=== PATIENT | male | born 1950 | race Caucasian/White ===

== ENCOUNTER 2017-01-05 18:06 | Inpatient (IN) ==
[2017-01-05 19:08] LABS: Basophils % 0.3 %; Eosinophils % 0.3 %; Hematocrit 40.3 % (37.5-50.1); Hemoglobin 13.5 g/dL (12.9-16.9); Immature Granulocytes % 0.4 % (0-4); Lymphocytes % 7.4 %; Mean Corpuscular HGB Conc 33.5 g/dL (31.6-35.5); Mean Corpuscular Hemoglobin 27.6 pg (28.0-33.3); Mean Corpuscular Volume 82.2 fL (83.0-100.0); Mean Platelet Volume 9.7 fL (9.4-12.4); Monocytes # 1.1 K/mcL (0.0-1.3); Monocytes % 7.7 %; Neutrophils # 11.6 K/mcL (1.6-8.9); Platelet Count 191 K/mcL (140-400); Red Cell Distribution Width 13.9 % (11.5-14.5); Segmented Neutrophils % 83.9 %
[2017-01-05 19:19] LABS: BUN/Creatinine Ratio 13 (6-26); Blood Urea Nitrogen 14 mg/dL (8-26); Calcium 8.9 mg/dL (8.6-10.8); Carbon Dioxide 22 mEq/L (19-29); Chloride 103 mEq/L (98-109); Glucose 157 mg/dL (70-99); Osmolality,Calculated 278 (280-300); Potassium 3.9 mEq/L (3.5-4.5); Sodium 132 mEq/L (136-145); eGFR For African Americans > 60 (> 60); eGFR For Non-African Americans > 60 (> 60)
[2017-01-05] MEDS ORDERED: Piperacillin/Tazobactam 3.375 GM in D5% in Water (Mini-Bag+) 100 ML IVPB ONE (21:09)
[2017-01-05] MEDS ORDERED: Vancomycin (wt based) 1,000 MG VIAL IV ONE (21:10)
[2017-01-05] MEDS ORDERED: 0.9 % Sodium Chloride 1,000 ML IVC ONE (21:30)
[2017-01-05] MEDS ORDERED: Vancomycin 1,500 MG in D5% in Water 250 ML IVPB ONE (22:00)
--- NOTE | 2017-01-05 22:09 | Emergency Department Note ---
Disposition Clinical Impression: Perineal abscess, Scrotal swelling Disposition: Admitted As Inpatient Condition: Good Referrals: Roshan,Denice Winchester CNP [Primary Care Provider] - Time of Disposition: 22:12 Skin/Abscess/FB HPI Chief complaint: ED Skin/Abscess/Foreign Body Stated complaint: abscess Time Seen by Provider: 01/05/17 18:29 Source: patient Limitations: no limitations Nursing Notes Reviewed: Yes Vital Signs Reviewed: Yes HPI Narrative: 66-year-old male presents emergency room for swelling to his scrotal area. States he noticed some swelling started in the area between his scrotum and rectum on Saturday. He saw his doctor yesterday. They placed him on Bactrim for concerns for developing abscess. He developed high fevers today to 103 associated with diaphoresis. He states he did not feel well earlier today. He comes into the ER for evaluation. He states he is not having a lot of pain in this area but has noted some redness and increased swelling extending up into the scrotum. He denies any problems with bowel movements. No pain with defecation. No problems with urination. He denies any abdominal pain. No chest pain or shortness of breath. Denies any trauma. Previous Rx's Medication Instructions Recorded predniSONE [Prednisone] 20 mg PO DAILY #18 tablet 06/19/15 Allergies Allergy/AdvReac Type Severity Reaction Status Date / Time No Known Allergies Allergy Unverified 06/15/15 09:50 Review of Systems: Gen.: No fevers or chills or new weakness Eyes: Denies double vision or any vision changes Ears: Denies any otalgia Pharynx: Denies sore throat CV: Denies chest pain. Denies palpitations Respiratory: Denies any cough or sputum production. No shortness of breath. GI: Denies any nausea, vomiting, diarrhea, constipation. Denies abdominal pain Neuro: Denies any headache. No problems with ambulation. No numbness. Skin: Denies any rashes or abrasions Psych: Denies any depression or suicidal or homicidal ideation Musculoskeletal: Denies any arthralgias or myalgias Past Medical History - Past Medical History Medical history: Reports: cancer, hypertension, other Psychiatric history: Reports: no psych history - Social History Smoking Status: Former smoker Smokeless Tobacco Status: No Alcohol use: Reports: none Drug use: Reports: none Physical Exam - General Limitations: no limitations General appearance: alert, in no apparent distress - Head Head exam: atraumatic, normocephalic - Eye Eye exam: Present: normal appearance - Neck Neck exam: Present: normal inspection - Chest Chest inspection: Present: normal inspection, symmetric chest wall rise - Respiratory Respiratory exam: Present: normal lung sounds bilaterally - Cardiovascular Cardiovascular exam: Present: regular rate, normal rhythm - Abdominal Exam Abdominal exam: Present: soft, Non-Tender, normal bowel sounds. Absent: tenderness, distention - Male exam: Present: other (There is extensive swelling and induration extending along the posterior aspect of the scrotum extending back towards the rectum. There is a cordlike or bandlike area of induration in this region. There is skin redness throughout this entire region. There is a little bit of swelling and redness that has extended up the scrotal region. Normal testicular exam.) - Extremities Exam Extremities exam: Present: normal inspection - Neurological Exam Neurological exam: Present: alert, oriented X3 - Psychiatric Psychiatric exam: Present: normal affect, normal mood - Skin Skin exam: Present: warm, dry, intact Course Vital Signs Temperature 101.6 F H 01/05/17 18:19 Pulse Rate 109 01/05/17 18:19 Respiratory Rate 16 01/05/17 18:19 Blood Pressure 177/71 01/05/17 18:19 O2 Sat by Pulse Oximetry 95 01/05/17 18:19 Temperature 99 F 01/05/17 21:53 Pulse Rate 92 01/05/17 21:55 Respiratory Rate 16 01/05/17 21:55 Blood Pressure 137/57 01/05/17 21:55 O2 Sat by Pulse Oximetry 97 01/05/17 21:55 Oxygen Delivery Oxygen Delivery Room Air Skin/Abscess/Foreign Body - MDM Narrative Medical decision making narrative: I consulted with urology, Dr. Burgess. I also consulted with Dr. Dale with general surgery. He will come in and see the patient in the ER. He would also like us to obtain a ultrasound of this region. I did a CT scan which showed an area of 3 cm possible abscess with extensive soft tissue induration and swelling noted. I am awaiting the environmental laboratory technician to come to the ER to do the study. In the meantime I have ordered vancomycin and Zosyn. It does not appear to be a Gail's presentation at this time. There is no gas noted on the CT scan. He does have an elevated white count and he had a fever here. I did treat his fever with Tylenol and which I gave him 1 g of oral Tylenol. He is receiving IV fluids. His lactate was normal. Remaining lab work was unremarkable. - Medical Records Medical records reviewed: Yes I reviewed the patient's medical records. - Lab Data Lab results reviewed: Yes I reviewed the patient's lab results. Result diagrams: 01/05/17 19:00 01/05/17 19:00 Lab Results 01/05/17 01/05/17 01/05/17 Range/Units 19:00 19:00 19:00 WBC 13.8 H (4.3-11.1) K/mcL RBC 4.90 (4.19-5.50) M/mcL Hgb 13.5 (12.9-16.9) g/dL Hct 40.3 (37.5-50.1) % MCV 82.2 L (83.0-100.0) fL MCH 27.6 L (28.0-33.3) pg MCHC 33.5 (31.6-35.5) g/dL RDW 13.9 (11.5-14.5) % Plt Count 191 (140-400) K/mcL MPV 9.7 (9.4-12.4) fL Immature Gran % 0.4 (0-4) % Seg Neutrophils % 83.9 % Lymphocytes % 7.4 % Monocytes % 7.7 % Eosinophils % 0.3 % Basophils % 0.3 % Neutrophils # 11.6 H (1.6-8.9) K/mcL Lymphocytes # 1.0 (0.6-4.6) K/mcL Monocytes # 1.1 (0.0-1.3) K/mcL Eosinophils # 0.0 (0.0-0.6) K/mcL Basophils # 0.0 (0.0-0.2) K/mcL Sodium 132 L (136-145) mEq/L Potassium 3.9 (3.5-4.5) mEq/L Chloride 103 (98-109) mEq/L Carbon Dioxide 22 (19-29) mEq/L BUN 14 (8-26) mg/dL Creatinine 1.09 (0.72-1.25) mg/dL Est GFR ( Amer) > 60 (> 60) Est GFR (Non-Af Amer) > 60 (> 60) BUN/Creatinine Ratio 13 (6-26) Glucose 157 H (70-99) mg/dL Calculated Osmolality 278 L (280-300) Lactic Acid 1.5 (0.5-2.2) mmol/L Calcium 8.9 (8.6-10.8) mg/dL - Radiology Data Radiology results reviewed: Yes I reviewed the patient's radiology results.
--- NOTE | 2017-01-05 22:59 | General Surgery Consult Note ---
Date of Encounter: 01/05/17 Time of Encounter: 22:55 Assessment and Plan (1) Perineal abscess Current Visit: Yes Status: Acute 66M with small scrotal abscess with associated cellulitis; non septic - abx: vanc, zosyn - IVF - urology consult: likely will need drainage; appreciate their recommendations - pain control - no surgery from general surgery needed at present, but available should that change or for consult by urology (2) Scrotal swelling Current Visit: Yes Status: Acute see above History of Present Illness Reason for consult: other (evaluation for abscess) History of present illness: 66M with PMH significant for HTN who presents after 2 days of worsening pain along his perineum notice primarily when he attempts to sit down. The pain has gotten progressively worse. In addition he has noticed purulent drainage in his clothes and bedding. He was seen by his PCP who placed him on bactrim, but his symptoms persisted. He then came to the ED for evaluation. A CT scan was obtained which I personally reviewed and interpreted. Surgery was consulted for management recommendations. Past Med Surg Social Fam HX - Past Medical History Medical history: cancer, hypertension, other Psychiatric history: no psych history - Past Surgical History Surgical History: no surgical history - Social History Smoking Status: Former smoker Smokeless Tobacco Status: No Alcohol use: none Drug use: none - Additional Family History Additional family history: non contributory Medications and Allergies predniSONE [Prednisone] 20 mg PO DAILY #18 tablet 06/19/15 [Rx] 3 Allergy/AdvReac Type Severity Reaction Status Date / Time No Known Allergies Allergy Unverified 06/15/15 09:50 Review of Systems All systems PM: A 10-system review of systems was performed and is negative for pertinent findings except as documented above in the HPI. General Surgery Exam Initial Vital Signs Temp Pulse Resp BP Pulse Ox 101.6 F H 109 16 177/71 95 01/05/17 18:19 01/05/17 18:19 01/05/17 18:19 01/05/17 18:19 01/05/17 18:19 - General physical appearance well developed, well nourished, no distress - Eyes other (no scleral icterus) - ENT normocephalic - Neck no lymphadectomy - Respiratory normal expansion, normal respiratory effort, clear to auscultation - Cardiovascular Cardiovascular exam: Present: RRR - Abdomen Abdomen general surgery: Present: soft, non tender - Genitourinary Present: normal penis with no external lesions, testicles present, testicles non -tender, other (small abscess at base of scrotum; (+)erythema; TTP; small area of fluctuance) - Rectum Rectum: Present: normal sphincter tone, no hemorrhoids, no tenderness, no masses , no bleeding - Neurologic Present: CN 2-12 grossly intact - Musculoskeletal Present: other (FROM in UE/LE B/L) - Psychiatric Psychiatric general surgery: Present: A&Ox3 Exam Initial Vital Signs Temp Pulse Resp BP Pulse Ox 101.6 F H 109 16 177/71 95 01/05/17 18:19 01/05/17 18:19 01/05/17 18:19 01/05/17 18:19 01/05/17 18:19 Results - Labs 01/05/17 19:00 01/05/17 19:00 Abnormal lab results WBC 13.8 K/mcL (4.3-11.1) H 01/05/17 19:00 MCV 82.2 fL (83.0-100.0) L 01/05/17 19:00 MCH 27.6 pg (28.0-33.3) L 01/05/17 19:00 Neutrophils # 11.6 K/mcL (1.6-8.9) H 01/05/17 19:00 Sodium 132 mEq/L (136-145) L 01/05/17 19:00 Glucose 157 mg/dL (70-99) H 01/05/17 19:00 Calculated Osmolality 278 (280-300) L 01/05/17 19:00 Diabetes panel 01/05/17 Range/Units 19:00 Sodium 132 L (136-145) mEq/L Potassium 3.9 (3.5-4.5) mEq/L Chloride 103 (98-109) mEq/L Carbon Dioxide 22 (19-29) mEq/L BUN 14 (8-26) mg/dL Creatinine 1.09 (0.72-1.25) mg/dL Glucose 157 H (70-99) mg/dL Calcium 8.9 (8.6-10.8) mg/dL Calcium panel 01/05/17 Range/Units 19:00 Calcium 8.9 (8.6-10.8) mg/dL Pituitary panel 01/05/17 Range/Units 19:00 Sodium 132 L (136-145) mEq/L Potassium 3.9 (3.5-4.5) mEq/L Chloride 103 (98-109) mEq/L Carbon Dioxide 22 (19-29) mEq/L BUN 14 (8-26) mg/dL Creatinine 1.09 (0.72-1.25) mg/dL Glucose 157 H (70-99) mg/dL Calcium 8.9 (8.6-10.8) mg/dL Adrenal panel 01/05/17 Range/Units 19:00 Sodium 132 L (136-145) mEq/L Potassium 3.9 (3.5-4.5) mEq/L Chloride 103 (98-109) mEq/L Carbon Dioxide 22 (19-29) mEq/L BUN 14 (8-26) mg/dL Creatinine 1.09 (0.72-1.25) mg/dL Glucose 157 H (70-99) mg/dL Calcium 8.9 (8.6-10.8) mg/dL All other labs normal. - Imaging CT scan - abdomen: report reviewed, image reviewed CT scan - pelvis: report reviewed, image reviewed Additional studies: US of perineum pending Consult Discharge Plan - Plan Referrals: Denice Islas, MUMTAZ [Primary Care Provider] -
--- NOTE | 2017-01-05 23:31 | Emergency Department Note ---
Disposition Clinical Impression: Perineal abscess, Scrotal swelling Disposition: Admitted As Inpatient Condition: Good General Adult HPI - General Chief complaint: ED Skin/Abscess/Foreign Body Stated complaint: abscess Time Seen by Provider: 01/05/17 18:29 Source: patient Limitations: no limitations - History of Present Illness Pain Scale: 0 - Related Data Previous Rx's Medication Instructions Recorded predniSONE [Prednisone] 20 mg PO DAILY #18 tablet 06/19/15 Allergies Allergy/AdvReac Type Severity Reaction Status Date / Time No Known Allergies Allergy Unverified 06/15/15 09:50 Past Medical History - Past Medical History Medical history: Reports: cancer, hypertension, other Surgical history: Reports: no surgical history Psychiatric history: Reports: no psych history - Social History Smoking Status: Former smoker Smokeless Tobacco Status: No Alcohol use: Reports: none Drug use: Reports: none Physical Exam - General Limitations: no limitations General appearance: alert, in no apparent distress Course Course Narrative: Patient signed out by patient came pending final disposition by surgery. Please see their documentation for history of present illness. The patient was evaluated by general surgery at bedside here after the patient came spoke with urology. General surgery recommends no intervention from their perspective at this time and for urologic evaluation given the area of involvement. Patient will be admitted to the hospitalist service with urologic consultation. Vital Signs Temperature 101.6 F H 01/05/17 18:19 Pulse Rate 109 01/05/17 18:19 Respiratory Rate 16 01/05/17 18:19 Blood Pressure 177/71 01/05/17 18:19 O2 Sat by Pulse Oximetry 95 01/05/17 18:19 Temperature 99 F 01/05/17 21:53 Pulse Rate 92 01/05/17 21:55 Respiratory Rate 16 01/05/17 21:55 Blood Pressure 137/57 01/05/17 21:55 O2 Sat by Pulse Oximetry 97 01/05/17 21:55 Oxygen Delivery Oxygen Delivery Room Air Medical Decision Making - [facility] Narrative Medical decision making narrative: 66-year-old male with scrotal abscess. Febrile here with a slight white count. Prior team spoke with urology and surgery. Urology was agreeable to see the patient in consultation in the morning as per the prior teams sign out. Surgery saw the patient in the ER. Patient given vancomycin and Zosyn. Admitted to the hospitalist service. - Lab Data Lab results reviewed: Yes I reviewed the patient's lab results. Result diagrams: 01/05/17 19:00 01/05/17 19:00 Lab Results 01/05/17 01/05/17 01/05/17 Range/Units 19:00 19:00 19:00 WBC 13.8 H (4.3-11.1) K/mcL RBC 4.90 (4.19-5.50) M/mcL Hgb 13.5 (12.9-16.9) g/dL Hct 40.3 (37.5-50.1) % MCV 82.2 L (83.0-100.0) fL MCH 27.6 L (28.0-33.3) pg MCHC 33.5 (31.6-35.5) g/dL RDW 13.9 (11.5-14.5) % Plt Count 191 (140-400) K/mcL MPV 9.7 (9.4-12.4) fL Immature Gran % 0.4 (0-4) % Seg Neutrophils % 83.9 % Lymphocytes % 7.4 % Monocytes % 7.7 % Eosinophils % 0.3 % Basophils % 0.3 % Neutrophils # 11.6 H (1.6-8.9) K/mcL Lymphocytes # 1.0 (0.6-4.6) K/mcL Monocytes # 1.1 (0.0-1.3) K/mcL Eosinophils # 0.0 (0.0-0.6) K/mcL Basophils # 0.0 (0.0-0.2) K/mcL Sodium 132 L (136-145) mEq/L Potassium 3.9 (3.5-4.5) mEq/L Chloride 103 (98-109) mEq/L Carbon Dioxide 22 (19-29) mEq/L BUN 14 (8-26) mg/dL Creatinine 1.09 (0.72-1.25) mg/dL Est GFR ( Amer) > 60 (> 60) Est GFR (Non-Af Amer) > 60 (> 60) BUN/Creatinine Ratio 13 (6-26) Glucose 157 H (70-99) mg/dL Calculated Osmolality 278 L (280-300) Lactic Acid 1.5 (0.5-2.2) mmol/L Calcium 8.9 (8.6-10.8) mg/dL - Radiology Data Radiology results reviewed: Yes I reviewed the patient's radiology results. Abdomen/Pelvis CT 01/05/17 18:48 IMPRESSION: 3 cm ellipse shaped hypodense area with thin rim in the posterior perineal region suggestive of an abscess with diffuse surrounding soft tissue swelling and edema. Stable chronic findings as described. RECOMMENDATIONS: Consider further evaluation with localized ultrasound as clinically warranted. D/ / Nu Valencia MD / Nu Valencia MD Interpreting Provider: Nu Valencia MD Scrotum Ultrasound 01/05/17 21:28 IMPRESSION: 1. Heterogeneous soft tissue along the posterior margin of the scrotum with surrounding hypervascularity suggestive of a phlegmon. 2. Scrotal skin thickening. D/ / Brian Alfred MD / Brian Alfred MD Interpreting Provider: Brian Alfred MD S.B.A.RKaila - S.B.A.RKaila Situation: Demographics, MOA Background: Presenting Complaint, Relevant PMH, Meds, & Allergies Assessment: Course and respsone to treatment, Exam Concerns, Patient/Family Expectation, Pertinant Lab Results, Outstanding Labs Recommendation: Barrier(s) to disposition, Recommendation based on pending studies, treatments, or consults S.B.A.RKaila Report Given to: Dr. Jeannette Ray Repor Time: 23:52 Attestation Statement - Attestation Attestation: I examined this patient and my medical decision-making was reviewed with the Resident Physician. I agree with the documented findings, disposition and treatment plan as described except to the extent set forth below. Patient signed out pending surgery consult. They will fill the abscess is located close to the scrotum and would be more appropriate to be I&D by urology. Admitted to medicine with consult.
[2017-01-06] MEDS ORDERED: *HR* Morphine 2 MG/ML SYRINGE IVP PRN ×2 (00:28→12:47)
[2017-01-06] MEDS ORDERED: Acetaminophen 325 MG TABLET PO PRN ×2 (00:28→12:47)
[2017-01-06] MEDS ORDERED: Ondansetron 4 MG/2 ML VIAL IVP PRN ×2 (00:28→12:47)
[2017-01-06] MEDS ORDERED: Naloxone 0.4 MG/ML INJ IVP PRN ×2 (00:28→12:47)
[2017-01-06] MEDS ORDERED: *HR* OxyCODONE Immed Rel 5 MG TABLET PO PRN ×2 (00:28→12:47)
[2017-01-06] MEDS ORDERED: 0.9 % Sodium Chloride w KCl 20 MEQ/1,000 ML MLS IVC SCH (00:30)
--- NOTE | 2017-01-06 00:39 | Internal Med History&Physical ---
Date of Encounter: 01/06/17 Time of Encounter: 00:10 Assessment and Plan (1) Scrotal abscess Current visit: Yes Status: Acute 1. Urology and Surgery both consulted by ER. 2. Will order blood cultures and U/A and urine culture. 3. Will continue IV Vancomycin and Zosyn as ordered in ER. 4. I will also add Flagyl for better anaerobic coverage. 5. If patient undergoes I&D by urology or surgery, I would request culture and gram stain be obtained. (2) Hypertension Current visit: Yes Status: Chronic 1. Will continue home meds as appropriate. 2. Monitor BP and adjust as needed. Qualifiers: Hypertension type: essential hypertension Qualified Code(s): I10 - Essential (primary) hypertension (3) DVT prophylaxis Current visit: Yes Status: Acute 1. Heparin SQ. Internal Medicine - H&P: HPI Chief complaint: painful/swollen scortum Admitted From: Emergency Dept Plans for Post Hospital Care: Home History of present illness: Mr. Lorenz is a 66 year old male who presents to the ER tonight with complaints of painful and swollen scrotum. He first noted it about 5 days ago and was placed on antibiotics 2 days ago by his PCP. Despite the antibiotics, his tenderness, swelling, and pain progressed. He then developed fevers today. He came to the ER for evaluation. Workup included CT of the pelvis and ultrasound of the scrotum. There was concern for scrotal abscess versus phlegmon. Urology and surgery were both consulted by the ER. General surgery does not feel surgery is indicated at this time and defers scrotal issues to urology. Urology will see the patient in the morning. He was subsequently admitted to the hospitalist service. Upon my assessment of the patient, I saw him in the ER with his and daughter present. He is feeling a little better now. He denies having significant pain at the present time. He denies any painful defecation, dysuria , urinary frequency, hematuria, or flank pain. He has never had this before. He denies any trauma or injury to the scrotum. He denies any prior history of prostate problems or prostatitis. Home meds include [id number] with ): Lisinopril 40 mg daily Metoprolol 25 mg BID Past Med Surg Social Fam HX - Past Medical History Attestation: Yes The following information was validated with the patient. Source: patient, old records reviewed Medical history: cancer (colon cancer 13 years ago), hypertension Psychiatric history: no psych history - Past Surgical History Surgical History: cancer surgery (partial colectomy), knee replacement - Social History Smoking Status: Former smoker Smokeless Tobacco Status: No Alcohol use: none Drug use: none Current living situation: Home, With Family Activity Level: Independent ambulation Recent Out of Country Travel Within the Last 8 Weeks: No - Family History Mother Living Status: Hx Family Genitourinary Disorders: No Hx Family Neurologic Disorders: Yes Father Living Status: Hx Family Cancer: No Hx Family Genitourinary Disorders: No Hx Family Neurologic Disorders: Yes Internal Medicine - H&P: Meds 3 Allergy/AdvReac Type Severity Reaction Status Date / Time No Known Allergies Allergy Unverified 06/15/15 09:50 - Constitutional Constitutional: fever(s), no chills, no night sweats - EENT Eyes: no blurry vision, no change in vision Ears: no ear pain, no tinnitus Nose, mouth and throat: no nasal congestion, no sinus pressure, no sore throat - Cardiovascular Cardiovascular ROS IM: no chest pain, no dyspnea - Respiratory Respiratory: no cough, no hemoptysis, no chest congestion - Gastrointestinal Gastrointestinal: no abdominal pain, no diarrhea, no hematemesis, no hematochezia, no melena, no nausea, no vomiting - Genitourinary Genitourinary ROS male: scrotal swelling, no dysuria, no flank pain, no hematuria, no penile discharge - Musculoskeletal Musculoskeletal ROS IM: no arthralgias, no back pain - Integumentary Integumentary IM: no rash, no jaundice - Neurological Neurological ROS: no dizziness, no focal weakness, no frequent falls, no headache(s) - Psychiatric Psychiatric: no anxiety, no depression - Endocrine Endocrine IM: no polydipsia, no polyuria - Hematologic/Lymphatic Hematologic/Lymphatic: no easy bruising, no lymphadenopathy - Allergic/Immunologic Allergic/Immunologic: no GI upset with certain foods - Constitutional Vitals: Temp Pulse Resp BP Pulse Ox 99 F 92 12 129/71 97 01/06/17 00:30 01/05/17 21:55 01/06/17 00:30 01/06/17 00:30 01/05/17 21:55 General appearance: Present: cooperative, A&O X 3, pleasant, no acute distress - Head Head exam: Present: atraumatic, normal inspection - Eye Eye exam: Present: EOMI, PERRL. Absent: scleral icterus Pupils: Present: normal accommodation - ENT ENT exam: Present: mucous membranes moist, normal exam - Neck Neck exam general surgery: Present: full ROM, supple. Absent: tenderness - Respiratory Respiratory exam: Present: CTAB. Absent: rales, rhonchi, wheezes - Cardiovascular Cardiovascular exam: Present: RRR, +S1, +S2. Absent: diastolic murmur, systolic murmur - GI/Abdominal GI/Abdominal exam: Present: normal bowel sounds, soft. Absent: hepatomegaly, mass, splenomegaly, tenderness - exam: Present: scrotal swelling Additional comments: Red, tender scrotum -- mostly on the posterior aspect towards rectum. Firm, nodular abscess/phelgmon on posterior aspect of scrotum. - Extremities Exam Extremities exam: Present: full ROM, warm. Absent: joint swelling, pedal edema - Back Exam Back exam: Absent: CVA tenderness (L), CVA tenderness (R) - Neurological Exam Neurological exam: Present: alert, CN II-XII intact, oriented X3, no focal deficits - Psychiatric Psychiatric exam: Present: normal affect, normal mood - Skin Skin exam: Present: dry, warm Internal Med - H&P Results - Labs CBC & Chem 7: 01/05/17 19:00 01/05/17 19:00 Labs: CT Abdomen/Pelvis and Scrotal U/S Reports reviewed
[2017-01-06] MEDS ORDERED: Vancomycin 1,500 MG in D5% in Water 250 ML IVPB SCH (01:00)
[2017-01-06 01:30] LABS: Basophils % 0.2 %; Eosinophils # 0.1 K/mcL (0.0-0.6); Eosinophils % 0.5 %; Hemoglobin 13.5 g/dL (12.9-16.9); Immature Granulocytes % 0.5 % (0-4); Immature Platelets 2.9 % (1.1-6.1); Lymphocytes # 1.8 K/mcL (0.6-4.6); Lymphocytes % 11.3 %; Mean Corpuscular HGB Conc 32.9 g/dL (31.6-35.5); Mean Corpuscular Hemoglobin 26.9 pg (28.0-33.3); Mean Corpuscular Volume 81.7 fL (83.0-100.0); Mean Platelet Volume 9.7 fL (9.4-12.4); Monocytes # 1.6 K/mcL (0.0-1.3); Neutrophils # 12.5 K/mcL (1.6-8.9); Platelet Count 208 K/mcL (140-400); Red Blood Count 5.02 M/mcL (4.19-5.50); Red Cell Distribution Width 13.8 % (11.5-14.5); Segmented Neutrophils % 77.5 %
[2017-01-06 01:34] LABS: INR 1.2; Prothrombin Time 13.2 Seconds (9.4-12.1)
[2017-01-06 01:36] LABS: Activated Partial Thrombo Time 27.2 Seconds (26.0-36.0)
[2017-01-06 01:43] LABS: Alanine Aminotransferase 14 Units/L (0-55); Albumin 2.9 g/dL (3.5-5.0); Albumin/Globulin Ratio 0.7 (1.1-2.2); Alkaline Phosphatase 72 Units/L (38-126); Aspartate Amino Transferase 16 Units/L (5-34); BUN/Creatinine Ratio 13 (6-26); Bilirubin,Total 1.6 mg/dL (0.2-1.2); Blood Urea Nitrogen 13 mg/dL (8-26); Calcium 8.6 mg/dL (8.6-10.8); Carbon Dioxide 19 mEq/L (19-29); Chloride 106 mEq/L (98-109); Globulin 3.9 g/dL (2.4-3.5); Glucose 120 mg/dL (70-99); Magnesium 1.6 mg/dL (1.6-2.6); Osmolality,Calculated 281 (280-300); Potassium 3.8 mEq/L (3.5-4.5); Sodium 135 mEq/L (136-145); Total Protein 6.8 g/dL (6.0-8.3); eGFR For African Americans > 60 (> 60); eGFR For Non-African Americans > 60 (> 60)
[2017-01-06 05:52] LABS: Bilirubin,Urine Negative (Negative); Blood,Urine Negative (Negative); Clarity,Urine Clear (Clear); Color,Urine Yellow (Yellow); Glucose,Urine (UA) Normal (Normal); Ketones,Urine Negative (Negative); Leukocyte Esterase,Urine Negative (Negative); Nitrite,Urine Negative (Negative); Protein,Urine Trace mg/dL (Neg-Trace); Specific Gravity,Urine 1.028 (1.010-1.025)
[2017-01-06 05:55] LABS: Bacteria,Urine None Seen per hpf (None-Few); Hyaline Casts,Urine None Seen per lpf (None-Few); RBC,Urine 0-3 per hpf (0-3); Squamous Epithelial Cell,Urine Moderate per lpf (None-Few)
[2017-01-06] MEDS ORDERED: *HR* Heparin 5,000 UNIT/ML VIAL SQ SCH (06:00)
[2017-01-06] MEDS ORDERED: MetroNIDAZOLE 500 MG/100 ML 500 MG/100 ML BAG IVPB SCH (08:00)
[2017-01-06] MEDS ORDERED: Piperacillin/Tazobactam 3.375 GM in D5% in Water (Mini-Bag+) 100 ML IVPB SCH (08:00)
--- NOTE | 2017-01-06 08:03 | Urology - Consult Note ---
Date of Encounter: 01/06/17 Time of Encounter: 08:00 - Assessment and Plan (1) Perineal abscess Current Visit: Yes Status: Acute Assessment and plan: patient examined together with general surgery. Agree that this is more perineal involvement as compared to scrotal involvement. no urological intervention needed. (2) Scrotal abscess Current Visit: Yes Status: Acute Assessment and plan: not a scrotal abscess just edema and reaction to perineal abscess. Urology CN:HPI Consult date: 01/06/17 Reason for consult Urology: Other (perineal abscess) Requesting physician: Esteban Zaragoza History of present illness: Dylan is a 66 y/o male with history of perineal induration since this past saturday. Patient was started on oral abx, but patient states that this failed to improve his symptoms. Came to ED last night where CT was done which showed perineal abscess with some scrotal thickening. no fevers. + elevated WBC. Past Med Surg Social Fam HX - Past Medical History Medical history: cancer, hypertension Psychiatric history: no psych history - Past Surgical History Surgical History: cancer surgery, colectomy, herniorrhaphy, knee replacement - Social History Smoking Status: Former smoker Smokeless Tobacco Status: No Alcohol use: none Drug use: none - Family History Mother Living Status: Hx Family Genitourinary Disorders: No Hx Family Neurologic Disorders: Yes Father Living Status: Hx Family Cancer: No Hx Family Genitourinary Disorders: No Hx Family Neurologic Disorders: Yes Medications and Allergies Aspirin [Aspirin] 81 mg PO DAILY 01/06/17 [History] Lisinopril [Zestril] 40 mg PO DAILY 01/06/17 [History] Metoprolol [Lopressor] 50 mg PO DAILY 01/06/17 [History] 3 Allergy/AdvReac Type Severity Reaction Status Date / Time No Known Allergies Allergy Unverified 06/15/15 09:50 Review of Systems - Constitutional no chills, no fever(s) - EENT Nose, mouth and throat: no dizziness - Cardiovascular no chest pain - Respiratory no cough - Gastrointestinal no abdominal pain - Genitourinary as per HPI Exam Initial Vital Signs Temp Pulse Resp BP Pulse Ox 101.6 F H 109 16 177/71 95 01/05/17 18:19 01/05/17 18:19 01/05/17 18:19 01/05/17 18:19 01/05/17 18:19 - General physical appearance Present: well developed - ENT Present: normal nares - Neck Present: no masses - Respiratory Present: normal respiratory effort - Cardiovascular Cardiovascular exam IM: RRR - Abdomen Abdomen: Present: soft - Genitourinary other (mild scrotal wall edema with perineal fluctuance with opening draining fluid just above anus. ) Urology Results - Labs 01/06/17 01:22 01/06/17 01:22 Abnormal lab results WBC 16.1 K/mcL (4.3-11.1) H 01/06/17 01:22 MCV 81.7 fL (83.0-100.0) L 01/06/17 01:22 MCH 26.9 pg (28.0-33.3) L 01/06/17 01:22 Neutrophils # 12.5 K/mcL (1.6-8.9) H 01/06/17 01:22 Monocytes # 1.6 K/mcL (0.0-1.3) H 01/06/17 01:22 PT 13.2 Seconds (9.4-12.1) H 01/06/17 01:22 Sodium 135 mEq/L (136-145) L 01/06/17 01:22 Glucose 120 mg/dL (70-99) H 01/06/17 01:22 Total Bilirubin 1.6 mg/dL (0.2-1.2) H 01/06/17 01:22 Albumin 2.9 g/dL (3.5-5.0) L 01/06/17 01:22 Globulin 3.9 g/dL (2.4-3.5) H 01/06/17 01:22 Albumin/Globulin Ratio 0.7 (1.1-2.2) L 01/06/17 01:22 Ur Specific [place] 1.028 (1.010-1.025) H 01/06/17 05:40 Urine Urobilinogen 2.0 mg/dL (Normal) H 01/06/17 05:40 Urine Microscopic WBC 3-5 per hpf (0-3) H 01/06/17 05:40 Ur Squamous Epith Cells Moderate per lpf (None-Few) H 01/06/17 05:40 Diabetes panel 01/06/17 Range/Units 01:22 Sodium 135 L (136-145) mEq/L Potassium 3.8 (3.5-4.5) mEq/L Chloride 106 (98-109) mEq/L Carbon Dioxide 19 (19-29) mEq/L BUN 13 (8-26) mg/dL Creatinine 0.98 (0.72-1.25) mg/dL Glucose 120 H (70-99) mg/dL Calcium 8.6 (8.6-10.8) mg/dL AST 16 (5-34) Units/L ALT 14 (0-55) Units/L Alkaline Phosphatase 72 (38-126) Units/L Albumin 2.9 L (3.5-5.0) g/dL Calcium panel 01/06/17 Range/Units 01:22 Calcium 8.6 (8.6-10.8) mg/dL Albumin 2.9 L (3.5-5.0) g/dL Pituitary panel 01/06/17 Range/Units 01:22 Sodium 135 L (136-145) mEq/L Potassium 3.8 (3.5-4.5) mEq/L Chloride 106 (98-109) mEq/L Carbon Dioxide 19 (19-29) mEq/L BUN 13 (8-26) mg/dL Creatinine 0.98 (0.72-1.25) mg/dL Glucose 120 H (70-99) mg/dL Calcium 8.6 (8.6-10.8) mg/dL Adrenal panel 01/06/17 Range/Units 01:22 Sodium 135 L (136-145) mEq/L Potassium 3.8 (3.5-4.5) mEq/L Chloride 106 (98-109) mEq/L Carbon Dioxide 19 (19-29) mEq/L BUN 13 (8-26) mg/dL Creatinine 0.98 (0.72-1.25) mg/dL Glucose 120 H (70-99) mg/dL Calcium 8.6 (8.6-10.8) mg/dL Total Bilirubin 1.6 H (0.2-1.2) mg/dL AST 16 (5-34) Units/L ALT 14 (0-55) Units/L Alkaline Phosphatase 72 (38-126) Units/L Albumin 2.9 L (3.5-5.0) g/dL All other labs normal. - Imaging CT scan - abdomen: image reviewed CT scan - pelvis: image reviewed Consult Discharge Plan - Plan Referrals: Denice Islas CNP [Primary Care Provider] -
--- NOTE | 2017-01-06 08:16 | Internal Med Progress Note ---
Date of Encounter: 01/06/17 Time of Encounter: 08:14 - Assessment and plan (1) Sepsis Current Visit: Yes Status: Acute Assessment and plan: Sepsis secondary to perineal/scrotal abscess/phlegmon Patient had a fever of 101.8 on 01/05/2017, white blood cell count is 16.1 Started on vancomycin, Zosyn and Flagyl, will try to de-escalate antibiotics when more appropriate Urology and surgery consulted, surgery to perform I&D later today CT scan of the pelvis showed:3 cm ellipse shaped hypodense area with thin rim in the posterior perineal region suggestive of an abscess with diffuse surrounding soft tissue swelling and edema. Scrotum ultrasound showed: 1. Heterogeneous soft tissue along the posterior margin of the scrotum with surrounding hypervascularity suggestive of a phlegmon. 2. Scrotal skin thickening. Qualifiers: Sepsis type: sepsis due to unspecified organism Qualified Code(s): A41.9 - Sepsis, unspecified organism (2) Perineal abscess Current Visit: Yes Status: Acute (3) Scrotal swelling Current Visit: Yes Status: Acute (4) Hypertension Current Visit: Yes Status: Chronic Assessment and plan: Continue metoprolol and lisinopril Qualifiers: Hypertension type: essential hypertension Qualified Code(s): I10 - Essential (primary) hypertension (5) Hyponatremia Current Visit: Yes Status: Acute Assessment and plan: Improving - Subjective Interval history: No for billing purposes - Constitutional Vitals: Temp Pulse Resp BP Pulse Ox 99.6 F 87 20 126/69 95 01/06/17 07:12 01/06/17 07:12 01/06/17 07:12 01/06/17 07:12 01/06/17 07:12 General appearance: Present: cooperative, A&O X 3, pleasant, no acute distress - Head Head exam: Present: atraumatic, normocephalic - Eye Eye exam: Present: PERRL, conjuntiva pink, sclera anicteric Pupils: Present: PERRL - Neck Neck exam general surgery: Present: supple, trachea midline. Absent: lymphadenopathy - Respiratory Respiratory exam: Present: CTAB. Absent: accessory muscle use, rales, rhonchi, wheezes - Cardiovascular Cardiovascular exam: Present: RRR, +S1, +S2. Absent: diastolic murmur, gallop, rubs, systolic murmur - GI/Abdominal GI/Abdominal exam: Present: normal bowel sounds, soft, no peritoneal signs. Absent: distended, tenderness - Extremities Exam Extremities exam: Present: warm, radial pulses palpable and symmetrical. Absent : calf tenderness, cyanotic, pedal edema - Neurological Exam Neurological exam: Present: CN II-XII intact, oriented X3, no focal deficits. Absent: pronater drift, facial droop, speech deficit - Skin Skin exam: Present: dry. Absent: intact (Scrotum is very erythematous, edematous and tender posteriorly closer to the perineal area with an area of induration) Internal Medicine: Result - Labs CBC & Chem 7: 01/06/17 01:22 01/06/17 01:22 Labs: Short CBC 01/06/17 Range/Units 01:22 WBC 16.1 H (4.3-11.1) K/mcL Hgb 13.5 (12.9-16.9) g/dL Hct 41.0 (37.5-50.1) % Plt Count 208 (140-400) K/mcL Neutrophils # 12.5 H (1.6-8.9) K/mcL BMP 01/06/17 01:22 Sodium 135 L Potassium 3.8 Chloride 106 Carbon Dioxide 19 BUN 13 Creatinine 0.98 Glucose 120 H Calcium 8.6 Liver Function 01/06/17 Range/Units 01:22 Total Bilirubin 1.6 H (0.2-1.2) mg/dL AST 16 (5-34) Units/L ALT 14 (0-55) Units/L Alkaline Phosphatase 72 (38-126) Units/L Albumin 2.9 L (3.5-5.0) g/dL Urine 01/06/17 Range/Units 05:40 Urine Color Yellow (Yellow) Urine Clarity Clear (Clear) Urine pH 6.0 (5.0-8.0) pH Units Ur Specific [place] 1.028 H (1.010-1.025) Urine Protein Trace (Neg-Trace) mg/dL Urine Glucose (UA) Normal (Normal) mg/dL - ABG Interpretation ABG results: PT/INR, D-dimer PT 13.2 Seconds (9.4-12.1) H 01/06/17 01:22 Consult Discharge Plan - Plan Referrals: Denice Islas CNP [Primary Care Provider] -
[2017-01-06] MEDS ORDERED: Vancomycin 1,000 MG VIAL ONE (08:38)
[2017-01-06] MEDS ORDERED: Water for inj. (sterile) 10 ML IV ONE (08:39)
[2017-01-06] MEDS ORDERED: Lisinopril 20 MG TABLET PO SCH (09:00)
[2017-01-06] MEDS ORDERED: Vancomycin 1,250 MG in D5% in Water 250 ML IVPB SCH (10:00)
--- NOTE | 2017-01-06 10:26 | Anesthesia Evaluation PreOp ---
Date of Encounter: 01/06/17 Time of Encounter: 10:49 - Past History Planned Operation: I&D Cardiac History: HTN Pulmonary History: Former smoker [employer] History: Denies Any Significant HX Other Medical History: Other (colon cancer s/p chemo and surgery) Anesthesia History: No Prior Anesthetic Complications, Past Anesthesia (hx colectomy, knee surgery) Alcohol Use: none Drug use: none Medications and Allergies Aspirin [Aspirin] 81 mg PO DAILY 01/06/17 [History] Ibuprofen [Motrin] 600 mg PO Q8HR PRN 01/06/17 [History] Lisinopril [Zestril] 40 mg PO DAILY 01/06/17 [History] Metoprolol Succinate 25 mg PO DAILY 01/06/17 [History] Sulfamethoxazole/Trimeth DS [Bactrim DS] 1 tab PO BID 01/06/17 [History] 3 Allergy/AdvReac Type Severity Reaction Status Date / Time No Known Allergies Allergy Unverified 06/15/15 09:50 - Meds/Allergy Pre-op Review Medications Reviewed: Yes Allergies Reviewed: Yes Beta Blockers on Current Med List: Yes (metoprolol) If Beta Blockers taken, Date/Time (Last Dose taken): 01-06-17 metoprolol 9:21 Anesthesia Results - Labs 01/06/17 01:22 01/06/17 01:22 Anesthesia Exam Vital Signs Temp Pulse Resp BP Pulse Ox 01/06/17 09:33 95 01/06/17 07:12 99.6 F 87 20 126/69 95 01/06/17 03:09 99.5 F 82 12 129/71 98 01/06/17 01:25 98.7 F 84 12 135/75 94 01/06/17 00:30 99 F 12 129/71 01/05/17 21:55 92 16 137/57 97 01/05/17 21:53 99 F 87 16 154/80 95 01/05/17 20:07 81 20 173/81 100 01/05/17 18:19 101.6 F H 109 16 177/71 95 Intake and Output 01/05/17 01/06/17 01/06/17 23:59 07:59 15:59 Intake Total 1250 / 1250 Balance 1250 / 1250 Intake: IV Fluids 1250 / 1250 0.9 % Sodium Chloride 1,000 ML 1000 / 1000 @ 3750 mls/hr IVC .Q16M [facility] Rx# :[id number] Zosyn 3.375 GM In Dextrose 5% ( 69 / Minibag+) 100 ML 100 ML @ 25 mls/hr IVPB ONCE [facility] Rx#: [id number] Vancocin 1,500 MG In Dextrose 5 250 / 250 % 250 ML @ 166.667 mls/hr IVPB ONCE ONE Rx#:[id number] Other: Weight 99.609 kg 96.933 kg Patient Weight 01/06/17 23:59 Weight 96.933 kg - HEENT Pupil (Motor): Pupils equal, EOMI Mallampati: III (short TM distance) Teeth: Poor dentition Oral Opening: Greater than 3 - [employer] LOC: Oriented - Cardiac Rhythm: Regular Murmur: None - Pulmonary Breath Sounds: bilateral Clear Respiratory Effort: Symmetrical Anesthesia Assess/Plan ASA Score: 2 Modified Geni Scale for Level of Consciousness: Cooperative, oriented, and tranquil Anesthetic Plan: General Monitoring Plan: Standard Monitors Recovery Plan: PACU
[2017-01-06] MEDS ORDERED: *HR* FentaNYL (PF) 100 MCG/2 ML VIAL ONE (10:27)
[2017-01-06] MEDS ORDERED: *HR* Propofol 200 MG/20 ML VIAL IVP ONE ×2 (10:27→11:28)
[2017-01-06] MEDS ORDERED: *HR* Midazolam HCl 2 MG/2 ML VIAL ONE (10:27)
[2017-01-06] MEDS ORDERED: *HR* Succinylcholine 200 MG/10 ML VIAL IVP ONE (10:28)
[2017-01-06] MEDS ORDERED: Lidocaine -MPF 2% 2 ML VIAL ONE (10:28)
[2017-01-06] MEDS ORDERED: Dexamethasone 4 MG/ML VIAL ONE (11:14)
[2017-01-06] MEDS ORDERED: Ondansetron 4 MG/2 ML VIAL ONE (11:14)
[2017-01-06] MEDS ORDERED: *HR* Phenylephrine 10 MG/ML VIAL ONE (11:16)
--- NOTE | 2017-01-06 12:17 | Anesthesia Evaluation Post Op ---
Date of Encounter: 01/06/17 Time of Encounter: 12:17 - Vital Signs Vital Signs: Last Vital Signs Temp 97.4 F L 01/06/17 11:47 Pulse 69 01/06/17 12:07 Resp 16 01/06/17 12:07 BP 97/59 01/06/17 12:07 Pulse Ox 97 01/06/17 12:07 - Lungs Lungs: Clear Ascult./Percussion - Airway Airway: Non-obstructed - Cardiovascular Regular Rate - Mental Status Mental Status: Alert & Oriented, Answers Appropriately - Pain Pain Scale: 2 - Nausea Vomiting Nausea Vomiting: Not Present - Hydration Hydration: NPO - Discharge PostOp Status: Transfer Patient to floor
--- NOTE | 2017-01-06 12:26 | General Surgery Progress Note ---
Date of Encounter: 01/06/17 Time of Encounter: 08:00 - Assessment and Plan (1) Perineal abscess Current Visit: Yes Status: Acute 66M with small perineal abscess with associated cellulitis; non septic - abx: vanc, zosyn - IVF - OR this AM; patient made NPO - pain control (2) Scrotal swelling Current Visit: Yes Status: Acute secondary to perineal abscess/cellulitis - OR today for drainage of abscess - cont abx Subjective Patient reports: no new complaints, feels better, still having pain, afebrile Objective Vital Signs - Last 8 Hours Temp Pulse Resp BP Pulse Ox 01/06/17 12:17 98.2 F 66 16 113/68 98 01/06/17 12:07 69 16 97/59 97 01/06/17 11:57 63 16 87/49 95 01/06/17 11:47 97.4 F L 63 12 80/45 95 01/06/17 09:33 95 01/06/17 07:12 99.6 F 87 20 126/69 95 Intake and Output 01/05/17 01/06/17 01/06/17 23:59 07:59 15:59 Intake Total 69 / 69 100 / 100 Balance 69 / 69 100 / 100 Intake: IV Fluids 69 / 69 100 / 100 Flagyl Premix 500 MG/100 ML 500 100 / 100 mg In 100 ml @ 100 mls/hr IVPB Q8HR [facility] Rx#:[id number] Zosyn 3.375 GM In Dextrose 5% ( 69 / 69 Minibag+) 100 ML 100 ML @ 25 mls/hr IVPB ONCE ONE Rx#: [id number] Other: Weight 96.933 kg Patient Weight 01/06/17 23:59 Weight 96.933 kg - General physical appearance well developed, well nourished, no distress - Respiratory normal expansion, normal respiratory effort - Cardiovascular Cardiovascular exam: Present: RRR - Abdomen Abdomen: Present: soft, non tender Hernia: none - Genitourinary normal penis with no external lesions, testicles present, testicles non-tender - Rectum normal sphincter tone, no hemorrhoids, no tenderness (tenderness and purulent drainage from perineal region) - Neurologic CN 2-12 grossly intact - Psychiatric oriented to time, oriented to person, oriented to place - Labs 01/06/17 01:22 01/06/17 01:22 Diabetes panel 01/06/17 Range/Units 01:22 Sodium 135 L (136-145) mEq/L Potassium 3.8 (3.5-4.5) mEq/L Chloride 106 (98-109) mEq/L Carbon Dioxide 19 (19-29) mEq/L BUN 13 (8-26) mg/dL Creatinine 0.98 (0.72-1.25) mg/dL Glucose 120 H (70-99) mg/dL Calcium 8.6 (8.6-10.8) mg/dL AST 16 (5-34) Units/L ALT 14 (0-55) Units/L Alkaline Phosphatase 72 (38-126) Units/L Albumin 2.9 L (3.5-5.0) g/dL Calcium panel 01/06/17 Range/Units 01:22 Calcium 8.6 (8.6-10.8) mg/dL Albumin 2.9 L (3.5-5.0) g/dL Pituitary panel 01/06/17 Range/Units 01:22 Sodium 135 L (136-145) mEq/L Potassium 3.8 (3.5-4.5) mEq/L Chloride 106 (98-109) mEq/L Carbon Dioxide 19 (19-29) mEq/L BUN 13 (8-26) mg/dL Creatinine 0.98 (0.72-1.25) mg/dL Glucose 120 H (70-99) mg/dL Calcium 8.6 (8.6-10.8) mg/dL Adrenal panel 01/06/17 Range/Units 01:22 Sodium 135 L (136-145) mEq/L Potassium 3.8 (3.5-4.5) mEq/L Chloride 106 (98-109) mEq/L Carbon Dioxide 19 (19-29) mEq/L BUN 13 (8-26) mg/dL Creatinine 0.98 (0.72-1.25) mg/dL Glucose 120 H (70-99) mg/dL Calcium 8.6 (8.6-10.8) mg/dL Total Bilirubin 1.6 H (0.2-1.2) mg/dL AST 16 (5-34) Units/L ALT 14 (0-55) Units/L Alkaline Phosphatase 72 (38-126) Units/L Albumin 2.9 L (3.5-5.0) g/dL Consult Discharge Plan - Plan Referrals: Denice Islas, MUMTAZ [Primary Care Provider] -
--- NOTE | 2017-01-06 12:30 | Operative Note ---
Date of procedure: 01/06/17 Pre-op diagnosis: perineal abcess Post-op diagnosis: same Procedure: incision and drainage of perineal abscess irrigation of perineal abscess Implants: iodoform dressing Complications: none Anesthesia: GETA Local Anesthetics: 0.5% Sensorcaine HCL SubQ (cc) Surgeon: Antony Dale Nca Certified Concierge: Salina Kong Nca Certified Concierge Other: Mendy Bonilla, PGY-I Estimated blood loss (cc): 5 Specimen: purulent drainge from abscess cavity Condition: stable Disposition: PACU Procedure in Detail: The patient was brought into the operating room suite. Mechanical DVT prophylaxis was initiated. The patient underwent smooth induction of general endotracheal anesthesia. The patient was placed in the prone position. The patient was prepped and draped in the usual fashion. Preoperative antibiotics were given. A timeout was held identifying the correct patient, pathology, and procedure. Everyone was in agreement and we began a procedure. Using a 15 blade scapel, I created an incision along the perineum approximately 5cm in length. There was immediate drainage of puss. Aerobic and anaerobic cultures were obtained. Loculations within the cavity were broken using a hemostat as well as bluntly with my finger. The cavity was irrigated with vancomycin based irrigation, then packed witih iodoform guaze, covered with 4x4s and paper tape. 25cc of local anesthetic was used. This concluded our procedure. The patient tolerated the procedure well and was escorted back to PACU in stable condition
[2017-01-06] MEDS: 0.9 % Sodium Chloride w KCl 20 MEQ/1,000 ML MLS IVC SCH (13:28)
[2017-01-06] MEDS: Piperacillin/Tazobactam 3.375 GM in D5% in Water (Mini-Bag+) 100 ML IVPB SCH (16:19)
[2017-01-06] MEDS: *HR* Heparin 5,000 UNIT/ML VIAL SQ SCH (16:39)
[2017-01-06] MEDS: Vancomycin 1,250 MG in D5% in Water 250 ML IVPB SCH (21:22)
[2017-01-07] MEDS: Piperacillin/Tazobactam 3.375 GM in D5% in Water (Mini-Bag+) 100 ML IVPB SCH ×2 (00:18→09:37)
[2017-01-07] MEDS: *HR* Heparin 5,000 UNIT/ML VIAL SQ SCH ×2 (05:23→18:33)
[2017-01-07] MEDS: 0.9 % Sodium Chloride w KCl 20 MEQ/1,000 ML MLS IVC SCH (05:31)
[2017-01-07] MEDS ORDERED: NON-FORMULARY MEDICATION 1 EACH EACH (Lisinopril [Zestril] 40 MG) PO SCH (09:00)
[2017-01-07] MEDS: Vancomycin 1,250 MG in D5% in Water 250 ML IVPB SCH (09:37)
[2017-01-07] MEDS: Aspirin 81 MG TAB.CHEW PO SCH (09:38)
[2017-01-07] MEDS: Lisinopril 20 MG TABLET PO SCH (09:38)
[2017-01-07] MEDS ORDERED: Sulfamethoxazole/Trimeth DS 1 EACH TABLET PO SCH (12:00)
--- NOTE | 2017-01-07 12:06 | General Surgery Progress Note ---
<Aurora Lopez - Last Filed: 01/07/17 13:11> Date of Encounter: 01/07/17 Time of Encounter: 11:45 - Assessment and Plan (1) Perineal abscess Current Visit: Yes Status: Acute Wound flushed 60 MLs of normal saline. Repacked with 1/4 inch Iodoform gauze. Covered with dry dressing and taped to secure. Continue wound care daily: remove dressing and packing. Shower/wash with soap and water. Then Sitz bath prior to home health arrival daily. Pack with 1/4 inch [place] form gauze for January 08 and . On January 10 transition to 1/4 inch playing gauze. Cover with dry dressing and tape to secure. May change or reinforce outer dressing PRN and after bowel movements. Consult to case management for home healthcare for wound care. Patient's is uncomfortable with the packing at this time. Ok to d/c from a surgical perspective with home health. 5 days of Augmentin and follow-up with Dr. Powell is in 7-10 days. (2) Scrotal abscess Current Visit: Yes Status: Acute Subjective Patient reports: no new complaints, feels better, still having pain, pain is less, tolerating a regular diet, voiding w/o difficulty, flatus, bowel movement , afebrile Objective Vital Signs - Last 8 Hours Temp Pulse Resp BP Pulse Ox 01/07/17 10:56 98.5 F 64 16 142/71 98 01/07/17 07:01 98.3 F 66 16 119/65 97 01/07/17 04:24 98.7 F 61 12 143/72 96 Intake and Output 01/06/17 01/07/17 01/07/17 23:59 07:59 15:59 Intake Total 1350 / 1350 100 / 100 240 / 240 Output Total 5 / 5 Balance 1350 / 1350 100 / 100 235 / 235 Intake: IV Fluids 1350 / 1350 100 / 100 KCl 20 mEq in 0.9% Sodium 1000 / 1000 Chloride 20 meq In 1,000 ml @ 100 mls/hr IVC .Q10H [facility] Rx#: [id number] Zosyn 3.375 GM In Dextrose 5% ( 100 / 100 100 / 100 Minibag+) 100 ML 100 ML @ 25 mls/hr IVPB Q8HR [facility] Rx#: [id number] Vancocin 1,250 MG In Dextrose 5 250 / 250 % 250 ML @ 166.667 mls/hr IVPB Q12H [facility] Rx#:[id number] Oral 240 / 240 Output: Urine 0 / 0 Estimated Blood Loss 5 / 5 Other: Meal Breakfast Percent of Meal Consumed 100% Weight 96.162 kg Patient Weight 01/07/17 23:59 Weight 96.162 kg - General physical appearance well nourished, no distress, no pain - Eyes normal ocular movement - ENT atraumatic, normocephalic - Neck Neck exam: trachea midline - Respiratory normal expansion, normal respiratory effort, clear to auscultation - Cardiovascular Cardiovascular exam: Present: RRR, distant heart sounds - Abdomen Abdomen: Present: bowel sounds present, soft, non tender Hernia: none - Incision Incision: Present: open (See a/p) - Genitourinary other (Scrotum edematous. See A/P) - Integumentary no rash - Neurologic CN 2-12 grossly intact - Musculoskeletal normal gait, normal posture - Psychiatric oriented to time, oriented to person, oriented to place, speech is normal, memory intact - Labs 01/06/17 01:22 01/06/17 01:22 - VTE Documentation of Mechanical Device: Intermittent pneumatic compression device Consult Discharge Plan - Plan Additional Instructions: Continue wound care daily: remove dressing and packing. Shower/wash with soap and water. Then Sitz bath prior to home health arrival daily. Pack with 1/4 inch [place] form gauze for January 08 and . On January 10 transition to 1/4 inch playing gauze. Cover with dry dressing and tape to secure. May change or reinforce outer dressing PRN and after bowel movements. Take antibiotics as directed. Do not stop without talking to a provider. Follow-up as directed. Referrals: Denice Islas TREAS[employer] ACCOUNTANT [Primary Care Provider] - Prescriptions: OxyCODONE/APAP 5/325 [Percocet 5/325 MG] 1 each PO Q4HR PRN #42 tablet PRN Reason: Pain Amoxicillin/Clavulanate [Augmentin] 875 mg PO BIDWM #10 tablet Docusate [Colace] 100 mg PO BID #60 capsule <Antony Dale - Last Filed: 01/08/17 08:14> Date of Encounter: 01/08/17 - Assessment and Plan (1) Perineal abscess Current Visit: Yes Status: Acute (2) Scrotal swelling Current Visit: Yes Status: Acute Objective Vital Signs - Last 8 Hours Temp Pulse Resp BP Pulse Ox 01/08/17 07:38 98.1 F 68 18 167/89 99 01/08/17 04:31 168/91 01/08/17 03:58 98.7 F 66 16 162/85 97 01/08/17 02:29 149/74 Intake and Output 01/07/17 01/08/17 01/08/17 23:59 07:59 15:59 Intake Total 250 / 250 Output Total 1200 / 1200 Balance -950 / -950 Intake: IV Fluids 250 / 250 Vancocin 1,500 MG In Dextrose 5 250 / 250 % 250 ML @ 166.67 mls/hr IVPB Q12H [facility] Rx#:[id number] Output: Urine 1200 / 1200 Other: Stool Size Moderate # Bowel Movements 1 Weight 97.1 kg Patient Weight 01/08/17 23:59 Weight 97.1 kg - Labs 01/08/17 01:18 01/08/17 01:18 Diabetes panel 01/08/17 Range/Units 01:18 Sodium 140 (136-145) mEq/L Potassium 4.0 (3.5-4.5) mEq/L Chloride 110 H (98-109) mEq/L Carbon Dioxide 23 (19-29) mEq/L BUN 13 (8-26) mg/dL Creatinine 0.96 (0.72-1.25) mg/dL Glucose 109 H (70-99) mg/dL Calcium 8.4 L (8.6-10.8) mg/dL Calcium panel 01/08/17 Range/Units 01:18 Calcium 8.4 L (8.6-10.8) mg/dL Pituitary panel 01/08/17 Range/Units 01:18 Sodium 140 (136-145) mEq/L Potassium 4.0 (3.5-4.5) mEq/L Chloride 110 H (98-109) mEq/L Carbon Dioxide 23 (19-29) mEq/L BUN 13 (8-26) mg/dL Creatinine 0.96 (0.72-1.25) mg/dL Glucose 109 H (70-99) mg/dL Calcium 8.4 L (8.6-10.8) mg/dL Adrenal panel 01/08/17 Range/Units 01:18 Sodium 140 (136-145) mEq/L Potassium 4.0 (3.5-4.5) mEq/L Chloride 110 H (98-109) mEq/L Carbon Dioxide 23 (19-29) mEq/L BUN 13 (8-26) mg/dL Creatinine 0.96 (0.72-1.25) mg/dL Glucose 109 H (70-99) mg/dL Calcium 8.4 L (8.6-10.8) mg/dL - Attending Attestation I have personally seen and examined the patient. I have reviewed pertinent labs , imaging, progress notes, including this one. I agree with the above assessment and plan and wish to include the following... 66M with perineal abscess s/p I&D; feels better; afebrile; minimal tenderness at incision site; will plan for discharge with 5 days of antibiotics; will set up with home health and plan for follow up in clinic in ~ 10 days
--- NOTE | 2017-01-07 14:50 | Internal Med Progress Note ---
Date of Encounter: 01/07/17 Time of Encounter: 14:49 - Assessment and plan (1) Sepsis Current Visit: Yes Status: Acute Assessment and plan: Sepsis secondary to perineal/scrotal abscess/phlegmon Patient had a fever of 101.8 on 01/05/2017, white blood cell count is 16.1 Culture positive for Possible MRSA COntinue vancomycin day 2 Discontinue Zosyn and Flagyl, Await final report of sensitivity to arrange discharge Urology and surgery consulted, surgery performed I&D on 01/06/17 CT scan of the pelvis showed: 3 cm ellipse shaped hypodense area with thin rim in the posterior perineal region suggestive of an abscess with diffuse surrounding soft tissue swelling and edema. Scrotum ultrasound showed: 1. Heterogeneous soft tissue along the posterior margin of the scrotum with surrounding hypervascularity suggestive of a phlegmon. 2. Scrotal skin thickening. Qualifiers: Sepsis type: methicillin resistant Staphylococcus aureus Qualified Code(s) : A41.02 - Sepsis due to Methicillin resistant Staphylococcus aureus (2) Perineal abscess Current Visit: Yes Status: Acute (3) Scrotal swelling Current Visit: Yes Status: Acute (4) Hypertension Current Visit: Yes Status: Chronic Assessment and plan: Continue metoprolol and lisinopril Qualifiers: Hypertension type: essential hypertension Qualified Code(s): I10 - Essential (primary) hypertension (5) Hyponatremia Current Visit: Yes Status: Acute Assessment and plan: Improving - Subjective Interval history: Less perineal and scrotal pain , no fevers overnight, no chest pressures breath , no abdominal pain, no dysuria - Constitutional Vitals: Temp Pulse Resp BP Pulse Ox 98.5 F 71 16 177/86 97 01/07/17 14:00 01/07/17 14:00 01/07/17 14:00 01/07/17 14:00 01/07/17 14:00 General appearance: Present: cooperative, A&O X 3, pleasant, no acute distress - Head Head exam: Present: atraumatic, normocephalic - Eye Eye exam: Present: PERRL, conjuntiva pink, sclera anicteric Pupils: Present: PERRL - Neck Neck exam general surgery: Present: supple, trachea midline. Absent: lymphadenopathy - Respiratory Respiratory exam: Present: CTAB. Absent: accessory muscle use, rales, rhonchi, wheezes - Cardiovascular Cardiovascular exam: Present: RRR, +S1, +S2. Absent: diastolic murmur, gallop, rubs, systolic murmur - GI/Abdominal GI/Abdominal exam: Present: normal bowel sounds, soft, no peritoneal signs. Absent: distended, tenderness Additional comments: Erythematous scrotum, surgical incision packed minimally draining, no hematoma - Extremities Exam Extremities exam: Present: warm, radial pulses palpable and symmetrical. Absent : calf tenderness, cyanotic, pedal edema - Neurological Exam Neurological exam: Present: CN II-XII intact, oriented X3, no focal deficits. Absent: pronater drift, facial droop, speech deficit - Skin Skin exam: Present: dry, intact Internal Medicine: Result - Labs CBC & Chem 7: 01/06/17 01:22 01/06/17 01:22 - ABG Interpretation ABG results: PT/INR, D-dimer PT 13.2 Seconds (9.4-12.1) H 01/06/17 01:22 - VTE Documentation of Mechanical Device: Intermittent pneumatic compression device Consult Discharge Plan - Plan Additional Instructions: Continue wound care daily: remove dressing and packing. Shower/wash with soap and water. Then Sitz bath prior to home health arrival daily. Pack with 1/4 inch [place] form gauze for January 08 and . On January 10 transition to 1/4 inch playing gauze. Cover with dry dressing and tape to secure. May change or reinforce outer dressing PRN and after bowel movements. Take antibiotics as directed. Do not stop without talking to a provider. Follow-up as directed. Referrals: Denice Islsa [employer] [Primary Care Provider] - Prescriptions: OxyCODONE/APAP 5/325 [Percocet 5/325 MG] 1 each PO Q4HR PRN #42 tablet PRN Reason: Pain Amoxicillin/Clavulanate [Augmentin] 875 mg PO BIDWM #10 tablet Docusate [Colace] 100 mg PO BID #60 capsule
[2017-01-07] MEDS: Vancomycin 1,500 MG in D5% in Water 250 ML IVPB SCH (23:04)
[2017-01-07] MEDS: 0.9 % Sodium Chloride 1,000 ML IVC SCH ×2 (23:07)
[2017-01-08 01:40] LABS: Eosinophils # 0.2 K/mcL (0.0-0.6); Mean Corpuscular HGB Conc 32.8 g/dL (31.6-35.5); Mean Corpuscular Hemoglobin 27.6 pg (28.0-33.3); Mean Corpuscular Volume 84.1 fL (83.0-100.0); Mean Platelet Volume 10.2 fL (9.4-12.4); Platelet Count 232 K/mcL (140-400); Red Blood Count 4.28 M/mcL (4.19-5.50); Red Cell Distribution Width 14.3 % (11.5-14.5)
[2017-01-08 01:54] LABS: Hemoglobin 11.8 g/dL (12.9-16.9)
[2017-01-08 01:56] LABS: BUN/Creatinine Ratio 14 (6-26); Blood Urea Nitrogen 13 mg/dL (8-26); Calcium 8.4 mg/dL (8.6-10.8); Carbon Dioxide 23 mEq/L (19-29); Chloride 110 mEq/L (98-109); Glucose 109 mg/dL (70-99); Osmolality,Calculated 291 (280-300); Sodium 140 mEq/L (136-145); eGFR For African Americans > 60 (> 60); eGFR For Non-African Americans > 60 (> 60)
[2017-01-08 02:14] LABS: Lymphocytes # 3.7 K/mcL (0.6-4.6); Neutrophils # 7.3 K/mcL (1.6-8.9)
[2017-01-08 02:15] LABS: Large Platelets Present (Not Present); Platelet Estimate Normal (Normal)
[2017-01-08] MEDS: *HR* Heparin 5,000 UNIT/ML VIAL SQ SCH (06:42)
[2017-01-08] MEDS: Aspirin 81 MG TAB.CHEW PO SCH (07:50)
[2017-01-08] MEDS: Lisinopril 20 MG TABLET PO SCH (07:51)
[2017-01-08] MEDS: Vancomycin 1,500 MG in D5% in Water 250 ML IVPB SCH (10:06)
[2017-01-08] MEDS: 0.9 % Sodium Chloride 1,000 ML IVC SCH (10:07)
[2017-01-08 11:28] VITALS: BP 170/81
--- NOTE | 2017-01-08 15:24 | Discharge Summary ---
Date of Encounter: 01/08/17 Time of Encounter: 11:00 - Discharge Diagnosis (1) Perineal abscess Priority: Primary Status: Acute (2) Hypertension Priority: Primary Status: Chronic Qualifiers: Hypertension type: essential hypertension Qualified Code(s): I10 - Essential (primary) hypertension - Discharge Medications Prescriptions: OxyCODONE/APAP 5/325 [Percocet 5/325 MG] 1 each PO Q4HR PRN #42 tablet PRN Reason: Pain Docusate [Colace] 100 mg PO BID #60 capsule Sulfamethoxazole/Trimeth DS [Bactrim DS] 1 each PO BID #20 tablet Home Medications: Aspirin 81 mg PO DAILY 01/06/17 [History] Ibuprofen [Motrin] 600 mg PO Q8HR PRN 01/06/17 [History] Lisinopril [Zestril] 40 mg PO DAILY 01/06/17 [History] Metoprolol Succinate 25 mg PO DAILY 01/06/17 [History] Docusate [Colace] 100 mg PO BID #60 capsule 01/07/17 [Rx] OxyCODONE/APAP 5/325 [Percocet 5/325 MG] 1 each PO Q4HR PRN #42 tablet 01/07/17 [Rx] Sulfamethoxazole/Trimeth DS [Bactrim DS] 1 each PO BID #20 tablet 01/08/17 [Rx] Allergies/Adverse Reactions: 3 Allergy/AdvReac Type Severity Reaction Status Date / Time No Known Allergies Allergy Unverified 06/15/15 09:50 Date of admission: 01/06/17 00:28 Primary care physician: Denice Islas CNP Consults: 01/07/17 13:33 Consult to Ceramics Artist [CONS] Stat Reason for SW Consult: Home health for wound packing. Ok to d/c from surgery perspective today. 01/07/17 14:34 PICC Consult [Consult to Invasive Line Access Team] [CONS] Routine Reason for Consult: IV antibiotics anticipated at discharge Line Type: EPIV - Patient Status Disposition: Home, Self-Care Condition: Good - Discharge Instructions Follow Up With: Antony Dale MD [Non-Partnered Physician] - 01/14/17 1:30 pm Denice Islas CNP [Primary Care Provider] - 01/24/17 1:45 pm Juancho Mosley MD [Non-Partnered Physician] - 01/23/17 8:45 am Additional Instructions: Continue wound care daily: remove dressing and packing. Shower/wash with soap and water. Then Sitz bath prior to home health arrival daily. Pack with 1/4 inch [place] form gauze for January 08 and . On January 10 transition to 1/4 inch playing gauze. Cover with dry dressing and tape to secure. May change or reinforce outer dressing PRN and after bowel movements. Take antibiotics as directed. Do not stop without talking to a provider. Follow-up as directed. Hospital course: Patient is a 66 year old male who presented to the ER on 01/06/17 with complaints of painful and swollen scrotum. He first noted it about 5 days prior to admission and was seen and evaluated by primary care provider who started him on Bactrim. In spite of being on Bactrim for approximately 2 days, his tenderness, swelling, and pain progressed in addition to developing fevers. In the emergency room, CT of the pelvis and ultrasound of the scrotum was done and there were concerns for scrotal abscess versus phlegmon. Urology and surgery were both consulted by the ER. Patient was admitted to the medical floor for further evaluation and management. During patients hospital stay, general surgery performed an incision and drainage on 01/06/17 and cultures were sent which were positive for MRSA and sensitive to Bactrim. Patient will be discharged to continue a 10 day course of Bactrim and to follow instructions from general surgery for packing scrotum. Patient will also follow -up with general surgery as an outpatient. - Time Spent with Patient Total time spent providing and/or coordinating discharge services: - Constitutional Vitals: Temp Pulse Resp BP Pulse Ox 98.2 F 67 16 170/81 95 01/08/17 11:26 01/08/17 11:26 01/08/17 11:26 01/08/17 11:26 01/08/17 11:26 General appearance: Present: cooperative, A&O X 3, pleasant, no acute distress - Respiratory Respiratory exam: Present: CTAB. Absent: accessory muscle use, rales, rhonchi, wheezes - Cardiovascular Cardiovascular exam: Present: RRR, +S1, +S2. Absent: diastolic murmur, gallop, rubs, systolic murmur - VTE Documentation of Mechanical Device: Intermittent pneumatic compression device
--- NOTE | 2017-01-08 15:50 | Physician Discharge Referral ---
Home Health/Hosp Referral Info Transfer to: Home Health (home health) - Diagnosis (1) Perineal abscess Priority: Primary Status: Acute (2) Hypertension Status: Chronic - Respiratory Orders Smoking Cessation: Smoking cessation has been advised. For more information, call the [place] Tobacco Quit Line at 9-862-ZKRW-NOW. - Transfer Medications Prescriptions: OxyCODONE/APAP 5/325 [Percocet 5/325 MG] 1 each PO Q4HR PRN #42 tablet PRN Reason: Pain Docusate [Colace] 100 mg PO BID #60 capsule Sulfamethoxazole/Trimeth DS [Bactrim DS] 1 each PO BID #20 tablet Sulfamethoxazole/Trimeth DS [Bactrim DS] 1 each PO BID #20 tablet Home Medications: Aspirin 81 mg PO DAILY 01/06/17 [History] Ibuprofen [Motrin] 600 mg PO Q8HR PRN 01/06/17 [History] Lisinopril [Zestril] 40 mg PO DAILY 01/06/17 [History] Metoprolol Succinate 25 mg PO DAILY 01/06/17 [History] Docusate [Colace] 100 mg PO BID #60 capsule 01/07/17 [Rx] OxyCODONE/APAP 5/325 [Percocet 5/325 MG] 1 each PO Q4HR PRN #42 tablet 01/07/17 [Rx] Sulfamethoxazole/Trimeth DS [Bactrim DS] 1 each PO BID #20 tablet 01/08/17 [Rx] Sulfamethoxazole/Trimeth DS [Bactrim DS] 1 each PO BID #20 tablet 01/08/17 [Rx] Allergies/Adverse Reactions: 3 Allergy/AdvReac Type Severity Reaction Status Date / Time No Known Allergies Allergy Unverified 06/15/15 09:50 Certification: Further, I certify that my clinical findings support that this patient is homebound (i.e. absences from home require considerable and taxing effort and are for medical reasons or zoroastrian services or infrequently or short duration when for other reasons) because: Homebound Reason: Patient requires assistance of a person or device to safely leave home, Absences from home are contraindicated except to recieve medical care Attestation: My signature below is to certify that this patient is under my care and that I, or nurse practitioner, or a physician's administrative library assistant working with me, has a face-to -face encounter with this patient.
[2017-01-08] MEDS ORDERED: Aminoglycoside Consult 1 EACH MC ONE (16:49)
== END 2017-01-08 16:50 | disposition home or self-care (01) | DRG 854 ==
LOC: 3BNU 18:06 → EMEROO 18:06 → SUATTDRO 01-06 00:28 → 3BNU 01-06 01:00
PROVIDERS: ADMIT Family Medicine; ATTEND Internal Medicine